=== PATIENT | male | born 1955 | race African-American/Black ===

== ENCOUNTER 2018-07-22 15:04 | Emergency (ER) | payer SELFPAY ==
[~2018-07-22] VITALS: Ht 170.2 cm; Wt 59.1 kg
[2018-07-22 15:16] VITALS: Ht 170.2 cm; Wt 59.1 kg
[2018-07-22 15:43] LABS: EOSINOPHILS 1.4 % (0-7); HEMATOCRIT 47.2 % (42.0-54.0); HEMOGLOBIN 15.9 g/dL (13.5-17.5); IMMATURE GRANULOCYTES 0.2 % (0-5); LYMPHOCYTES 35.8 % (15-50); MCH 33.6 pg (26.0-34.0); MCHC 33.7 g/dL (31.0-37.0); MCV 99.8 fL (80.0-100.0); MEAN PLATELET VOLUME 10.2 fL (7.4-10.4); MONOCYTES 8.1 % (2-11); NEUTROPHILS 53.5 % (40-80); PLATELET COUNT 276 10x3/uL (130-400); RBC 4.73 10x6/uL (4.20-6.10); RDW 11.7 % (11.5-14.5); WBC 5.1 10x3/uL (4.8-10.8)
[2018-07-22 15:56] LABS: ALBUMIN 4.1 g/dL (3.4-5.0); ALKALINE PHOSPHATASE 79 U/L (46-116); ALT (SGPT) 25 U/L (10-68); BILIRUBIN - TOTAL 0.52 mg/dL (0.2-1.3); CALC OSMOLALITY 272 mosm/kg (275-300); CALCIUM 8.8 mg/dL (8.5-10.1); CHLORIDE - SERUM 98 mmol/L (98-107); GLUCOSE 90 mg/dL (74-106); POTASSIUM - SERUM 3.1 mmol/L (3.5-5.1); PROTEIN - SERUM 9.1 g/dL (6.4-8.2); SODIUM 137 mmol/L (136-145); UREA NITROGEN 9 mg/dL (7-18); eGFR NON AFRICAN AMERICAN 81 mL/min (90-120)
[2018-07-22 15:59] LABS: AMYLASE - SERUM 105 U/L (25-115); LIPASE 191 U/L (73-393)
[2018-07-22 16:00] LABS: TROPONIN-I < 0.017 ng/mL (0.000-0.060)
[2018-07-22 16:15] LABS: APPEARANCE CLEAR (CLEAR); BILIRUBIN NEGATIVE (NEGATIVE); COLOR YELLOW (YELLOW); GLUCOSE NEGATIVE (NEGATIVE); KETONE NEGATIVE (NEGATIVE); NITRITE NEGATIVE (NEGATIVE); PROTEIN TRACE mg/dL (NEGATIVE); UROBILINOGEN NORMAL (NORMAL)
[2018-07-22] MEDS ORDERED: PROTONIX40 MG PO (16:44)
[2018-07-22 16:51] VITALS: BP 125/74
== END 2018-07-22 16:52 | disposition home or self-care (01) ==
LOC: EDBD 15:04 → D.ER 15:04
PROVIDERS: Family Medicine
DX: K21.9 Gastro-esophageal reflux disease without esophagitis (principal)